=== PATIENT | female | born 2000 | race Caucasian/White ===

== ENCOUNTER 2018-06-10 06:16 | Emergency (ER) | payer BC, SELFPAY ==
[2018-06-10 06:16] VITALS: BP 123/80; PULSE 75; RESP 14; TEMP 36.7; O2SAT 100; BMI 20.5
--- NOTE | 2018-06-10 06:27 | CT_ITS ---
STUDY: CT ABDOMEN AND PELVIS WITHOUT CONTRAST REASON FOR EXAM: Female, 17 years old. Right lower quadrant pain and cough RADIATION DOSAGE (If Supplied By Facility): CTDIvol = ( 9.03 ) mGy, DLP = ( 413.54 ) mGycm TECHNIQUE: Transaxial images were obtained from the dome of the diaphragm to the symphysis pubis without oral contrast, and without intravenous contrast. Sagittal and coronal images were reconstructed. Individualized dose optimization techniques were used for this CT. COMPARISON: None. FINDINGS: The visualized lung bases are unremarkable. The visualized portions of the heart are within normal limits. Normal liver. Normal gallbladder and extrahepatic biliary system. Normal spleen. Normal pancreas. Normal bilateral adrenal glands. Normal right kidney. Normal left kidney. Normal visualized stomach. Normal small intestine. Normal colon. The appendix is visualized and appears normal. Normal abdominal aorta. Normal inferior vena cava. Normal retroperitoneum. Normal urinary bladder. Mild free pelvic fluid. Normal abdominal wall. Remote deformity of the right L4 transverse process. CT/Abdomen/Pelvis W IV Cont ONLY IMPRESSION: No evidence of appendicitis, acute intestinal pathology or acute obstructive uropathy. Mild free pelvic fluid. Electronically Signed: Sorin Zavala MD at 7:29 EDT Tel , Service support ,
[2018-06-10] MEDS: 0.9% Normal Saline 1,000 ML 250 ML IV (06:34)
--- NOTE | 2018-06-10 06:37 | ED.DCSUM_ITS ---
- ER Visit Summary Date of Service: 06/10/18 Chief Complaint: Right-sided abdominal pain History of Present Illness: The patient is a 17 F who presents with right-sided jaw pain that started last evening at 1800. This occurred after eating. Parent states she ate very little for dinner. That is unusual. No complaint of fever or chills. Does complain of nausea without vomiting diarrhea. She denies dysuria, frequency, urgency hematuria. Menses within the last week to 2. Denies any back or flank pain. Denies any history of trauma. Denies any skin lesions or rash. Denies cough, shortness of breath difficulty breathing or pleuritic pain. No URI symptoms. There is a remote history of ovarian cyst 2012. Cyst was on the left side. There is family history of cholelithiasis/ cholecystitis. She denies any food intolerance. She points superior to McBurney's point area of maximal tenderness. She also commented when she coughed it hurt and if she straightens up and begins to walk it hurts. She prefers to be flexed at the hips. Physical Examination: Blood pressure slightly elevated. HEENT exam is unremarkable. Insert cardiopulmonary exam. Abdomen is remarkable for tenderness in the right side in the proximity McBurney's point. There is guarding. She complained of equivocal discomfort with percussion. Bowel sounds are diminished. Equivocal Rovsing sign. Lowering the head of her bed causes her discomfort in the right lower quadrant. There is no CVA tenderness noted. There is no skin lesions noted. Neuro exam is nonfocal. Test Results: CBC is normal with a white count of 8.2 thousand with 44 segs no bands 44% lymphs. Serum test was negative. UA and CT of the abdomen are pending. Emergency Department Course and Treatment: To evaluate patient's right lower quadrant pain with history of ovarian cyst serum test was obtained. UA and CBC. CT of the abdomen with IV contrast was ordered. IV contrast was ordered to help visualize the appendix and she is thin with a BMI of 20. Treatment Plan: IV was established at 250 cc of normal saline per hour. She declined pain medicine. With predominant lymphocytosis and right lower quadrant pain this may represent mesenteric adenitis. Doubt atypical depression patient for ovarian cyst. This still may represent appendicitis. Patient's history physical was discussed with Dr. Mueller who will make disposition pending UA results and interpretation of CT of the abdomen and pelvis. Disposition: Pending Impression: Right lower quadrant abdominal pain with nausea and vomiting This note was generated with [employer] dictation software. It may contain incorrect words, spelling, and punctuation that were not noted in review of the chart prior to signing ED Disposition - Plan for ED Patient: Chief Complaint: Abd Pain Referrals: Cleve Caputo MD [Primary Care Provider] -
[2018-06-10 06:41] LABS: Red Blood Cells-Urine 0 SEEN /hpf (0-5)
[2018-06-10 06:48] LABS: Absolute Lymphocyte Count 3.63 X10^3/ul (0.83-4.51); Absolute Neutrophil Count 3.6 X10^3/uL (2.0-7.7); Basophil# 0.05 X10^3/uL; Basophil% 0.6 % (0-1); Eosinophils% 2.4 % (0-5); Lymphocyte # 3.63 X10^3/ul (4.0); Lymphocyte % 44.4 % (19-41); Mean Corp Hgb Conc 33.3 g/gl (32-36); Mean Corpuscular Hgb 31.8 pg (27.0-32.0); Mean Corpuscular Volume 95.5 fL (81-99); Mean Platelet Vol. 9.7 fl (6.2-12.0); Monocyte# 0.65 X10^3/uL; Neutrophil # 3.63 X10^3/uL (2.7-7.7); Neutrophil % 44.5 % (47-70); Platelet Count 271 K/mm3 (150-450); RBC Distribution Width CV 12.6 % (11.6-14.6); RBC Distribution Width SD 42.6 fl (35.1-43.9); White Blood Count 8.2 K/mm3 (4.4-11.0)
[2018-06-10 06:54] LABS: POSITIVE COUNT NO; POSITIVE DIFFERENTIAL NO; POSITIVE MORPHOLOGY NO; Pregnancy, Serum, hCG Quali. NEGATIVE Negative (0-9 Nonpreg)
[2018-06-10 06:56] LABS: Color, Urine Yellow (Yellow); Glucose, Dipstick Normal (Normal); Ketone-Dipstick Negative (Negative); Leukocyte Esterase-Dipstick Negative /ul (Negative); Nitrite-Dipstick Negative (Negative); Occult Blood-Urine Negative /ul (Negative); Protein-Dipstick 15 mg/dl (Negative); Urine Bilirubin Dipstick Negative (Negative); Urine Clarity Clear (Clear); Urine Urobilinogen Normal (Normal); Urine pH 6.5 (5.0 - 8.0)
[2018-06-10 07:07] LABS: Bacteria 1+ /hpf (None Seen); Mucous, Urine 1+ /hpf (<or=2+)
[2018-06-10 07:08] LABS: Squamous Epithelial Cells - UA 0-5 SEEN /hpf (5-10); White Blood Cells 0-5 SEEN /hpf (0-5)
[2018-06-10 08:23] VITALS: BP 120/78; PULSE 71; RESP 16; O2SAT 97
--- NOTE | 2018-06-10 08:23 | ED.VISSUMM ---
- ER Visit Summary Date of Service: 06/10/18 Chief Complaint: [] History of Present Illness: The patient is a 17 F [] Physical Examination: [] Test Results: [] Emergency Department Course and Treatment: [] Treatment Plan: [] Disposition: [] Impression: [] This note was generated with [employer] dictation software. It may contain incorrect words, spelling, and punctuation that were not noted in review of the chart prior to signing ED Disposition - Plan for ED Patient: Disposition: Home or Assisted Living Chief Complaint: Abd Pain Diagnosis: Abdominal pain in female patient Instructions: ED Abdominal Pain Unkn Cause Prescriptions: Naproxen [Naprosyn] 500 mg PO BID #20 tab Referrals: Cleve Caputo MD [Primary Care Provider] -
[2018-06-10 08:36] VITALS: BP 103/63; PULSE 67; RESP 16; O2SAT 100
== END 2018-06-10 08:37 | disposition home or self-care (01) ==
PROVIDERS: Emergency Provider Emergency Medicine; Family Provider Pediatrics; PCP Pediatrics
DX: R10.31 Right lower quadrant pain (principal); R11.2 Nausea with vomiting, unspecified
CPT/HCPCS: 74177; 81001; 84703; 85025; 96360; 96361; 99283; J7030; Q9967; A4216

== ENCOUNTER → 2020-09-30 | Outpatient (CLI) | payer OTHER, SELFPAY | END | disposition home or self-care (01) | LOC: LABSPEC 11:34 | PROVIDERS: PCP Pediatrics; Referring Provider Pediatrics; Visit Provider Pediatrics | DX: Z20.828 Contact with and (suspected) exposure to other viral communicable diseases (principal) | CPT/HCPCS: 87635; C9803; U0003 ==